=== PATIENT | male | born 1965 | race Two or more races ===

== ENCOUNTER 2020-06-16 11:44 | Inpatient (IN) | payer MEDICAID ==
[2020-06-16 16:34] VITALS: BP 109/67
[2020-06-16] MEDS ORDERED: Maalox 30 mL Cup PO PRN (16:40)
[2020-06-16] MEDS ORDERED: Magnesium Hydroxide (MOM) 30 mL UDC PO PRN (16:40)
[2020-06-17] MEDS: Multivitamin Tab PO SCH (08:33)
--- NOTE | 2020-06-17 13:51 | History & Physical ---
ADMIT DATE: 06/16/2020 CHIEF COMPLAINT: Hearing voices. HISTORY OF PRESENT ILLNESS: We have a 55-year-old male with history of schizophrenia, methamphetamine abuse, who was brought here for hearing voices. The patient was psychotic. At this time, the patient is still hearing voices. Denies any chest pain, shortness of breath, nausea, vomiting, abdominal pain, diarrhea. PAST MEDICAL HISTORY: 1. Schizophrenia. 2. Methamphetamine abuse. PAST SURGICAL HISTORY: None. MEDICATIONS: List reviewed. ALLERGIES: None. PHYSICAL EXAMINATION: VITAL SIGNS: Temperature 98.6, pulse 70, respirations 20, blood pressure 130/60. HEENT: Normocephalic, atraumatic head exam. NECK: Supple. CARDIAC: Regular rate and rhythm. LUNGS: Decreased breath sounds. ABDOMEN: Soft, nontender. EXTREMITIES: No edema, cyanosis, or clubbing. Cranial nerves grossly intact ASSESSMENT AND PLAN: 1. Methamphetamine abuse. 2. Schizophrenia. The patient will continue with inpatient psych. We will do some labs, CBC, CMP, COVID testing. JOB# [id number] DESTINY
--- NOTE | 2020-06-17 16:27 | History & Physical ---
ADMIT DATE: 06/16/2020 IDENTIFYING INFORMATION: The patient is a 55-year-old male. The patient was admitted on a hold for danger to self and danger to others. HISTORY OF PRESENT ILLNESS: The patient was sent from [place], staff contacted [facility] requesting mental health evaluation. male, who was experiencing hallucinations, voices were telling him to hurt himself, acting bizarre, paranoid behavior. When I talked to the patient, he reported that he was hearing voices. The voices telling him to harm himself, but he will not harm himself he says. He reports that he has been hospitalized a lot. He was not a very good historian. He reports that he sleeps well. He eats well. He has been depressed for a long period of time. He is not sure where he is, cannot tell me the date. He was not a very good historian. Onset of illness. Unable to tell me how long this has been going on. He states he has been homeless, not working. Unable to take care of himself. PAST PSYCHIATRIC HISTORY: He has been hospitalized a lot, unable to give much more information. SUBSTANCE ABUSE HISTORY: The patient denies. The patient also reports many prior suicide attempts by cutting himself and overdose. ALLERGIES: The patient has no known drug allergies. SOCIAL HISTORY: The patient reports that he is single, never , no children. EDUCATIONAL HISTORY: High school education, he is homeless. Work history, not working. FAMILY HISTORY: Denies family psychiatric disorder. MENTAL STATUS EXAMINATION: The patient is appropriately dressed, not well groomed. He was somewhat sleepy, very poor historian. Unable to tell me the date, where he is, why he is here. Admits to hearing voices. The voices are telling him to harm himself, but he said he would not harm himself. He has many prior suicide attempts, many hospitalizations. He reports that he sleeps well, eats well. He denies any intent to harm anyone. He seems to have below average intelligence. Unable to participate in meaningful conversation. Unable to tell me who is the president of thePlatform. Concentration is poor, unable to answer questions appropriately as well as questions forward and backward. Long-term memory is good. He can remember age, date of . Recent memory is poor, does not realize the problems that led to him coming here, what he ate for breakfast. Immediate memory is poor, cannot concentrate enough and repeat things after me. Insight about his illness is poor, does not realize what problem he has. Judgment is poor with his psychosis. IMPRESSION: Major depression, recurrent, severe, with psychosis. MEDICAL DIAGNOSIS: As per medical doctors. His assets, he is willing to get help. Negative, poor coping skills. PLAN: The patient will be started on Abilify and Lexapro. We will do group therapy, milieu therapy, and individual therapy. ESTIMATED LENGTH OF STAY: 3-7 days. DISCHARGE CRITERIA: Decreasing psychosis, no longer suicidal, after discharge outpatient. JOB# [id number]
[2020-06-18 06:07] LABS: A1C 5.3 % (4.8-5.6)
[2020-06-18] MEDS: Multivitamin Tab PO SCH (08:54)
--- NOTE | 2020-06-18 15:07 | Progress Notes ---
DATE: 06/18/2020 Case was discussed with staff of the patient, reviewed records. The patient reports he continues to hear voices. The voices tell him to kill people, but he has no plan of doing that. He denies that he will harm himself. He is still looking disheveled, disorganized, and internally preoccupied, cannot make safe plan for self-care. No side effects with the medication, no sedation, no nausea, no extrapyramidal symptoms. I will be increasing his Abilify to 5 mg twice a day. No side effects with the medication, no sedation, no nausea, no extrapyramidal symptoms and The voices are command in nature, telling him to harm people. We will continue outpatient group therapy, milieu therapy, adjust medication as needed. JOB# [id number] DESTINY
[2020-06-19] MEDS: Multivitamin Tab PO SCH (08:36)
--- NOTE | 2020-06-19 12:52 | Progress Notes ---
DATE: 06/19/2020 Case was discussed with staff of the patient, reviewed records. The patient continues to have disheveled, disorganized, internally preoccupied, staying in bed, continues to have poor insight, continues to be unable to make safe plan for self-care. Continues to report hearing voices, but now they are annoying him. He denies that there are no longer command in nature, but he is still hearing them. No side effects with the medication, no sedation, no nausea, no extrapyramidal symptoms. He is not sleeping well and I will be increasing the Abilify to 10 mg twice a day and working also on placement for this patient. I will continue outpatient group therapy, milieu therapy, adjust medication as needed. JOB# [id number]
--- NOTE | 2020-06-19 16:09 | Internal Medicine Prog Note ---
Internal Medicine Subjective - Subjective Service Date: 06/19/20 Patient seen and examined:: without staff Patient is:: awake Per staff patient has:: no adverse event, no episodes of fall Internal Medicine Objective - Results Recent Labs: Laboratory Last Values Triglycerides 74 mg/dL (30-150) 06/17/20 08:52 Cholesterol 145 mg/dL (<200) 06/17/20 08:52 LDL Cholesterol 86 mg/dL (0-129) 06/17/20 08:52 HDL Cholesterol 49 mg/dL (>45) 06/17/20 08:52 - Physical Exam Vitals and I&O: Vital Signs Temp 97 F 06/19/20 14:00 Pulse 67 06/19/20 14:00 Resp 20 06/19/20 14:00 BP 127/64 06/19/20 14:00 Pulse Ox 98 06/19/20 14:00 Intake & Output 06/18/20 06/19/20 06/19/20 18:59 06:59 18:59 Intake Total 1100 120 Balance 1100 120 Intake: Oral 1100 120 Other: # Voids 3 Stool Characteristics Soft Soft Soft Active Medications: Current Medications Acetaminophen (Tylenol) 650 mg PO Q4H PRN PRN Reason: Pain (Mild 1-3) Stop: 08/15/20 16:39 Acetaminophen (Tylenol Extra Strength) 1,000 mg PO Q6H PRN PRN Reason: Pain (Moderate 4-6) Stop: 08/15/20 16:39 Al Hydrox/Mg Hydrox/Simethicone (Maalox) 30 ml PO Q4HR PRN PRN Reason: GI DISTRESS Stop: 08/15/20 16:39 Aripiprazole (Abilify) 10 mg PO BID [facility]; Protocol Stop: 08/18/20 16:59 Ibuprofen (Motrin) 400 mg PO Q4H PRN PRN Reason: Pain (Severe 7-10) Stop: 08/15/20 16:39 Last Admin: 06/18/20 08:40 Dose: 400 mg Lorazepam (Ativan) 0.5 mg PO Q4HR PRN; Protocol PRN Reason: Anxiety Stop: 07/16/20 16:39 Last Admin: 06/19/20 08:36 Dose: 0.5 mg Magnesium Hydroxide (Milk Of Magnesia) 30 ml PO HS PRN PRN Reason: Constipation Multivitamins/Vitamin C (Theragran) 1 tab PO DAILY TYESHA Stop: 08/16/20 08:59 Last Admin: 06/19/20 08:36 Dose: 1 tab Sertraline HCl (Zoloft) 50 mg PO DAILY TYESHA; Protocol Stop: 08/17/20 08:59 Last Admin: 06/19/20 08:36 Dose: 50 mg Zolpidem Tartrate (Ambien) 5 mg PO HS PRN PRN Reason: Insomnia Stop: 08/15/20 16:39 Last Admin: 06/17/20 23:16 Dose: 5 mg HEENT: NC/AT, PERRLA Neck: Supple Lungs: CTAB Cardiovascular: RRR, Normal S1, Normal S2 Abdomen: soft Extremities: clear Internal Medicine Assmt/Plan - Assessment Assessment: 1. Methamphetamine abuse 2. Acute psychosis - Plan Plan: continue supportive care d/w r.n. review complete medical records
[2020-06-20] MEDS: Multivitamin Tab PO SCH (09:00)
--- NOTE | 2020-06-20 18:57 | Progress Notes ---
DATE: 06/20/2020 Case was discussed with staff of the patient, reviewed records. The patient reported that the medication is starting to work. He is sleeping better, eating better. Increased Abilify yesterday. The voices are not as prominent. However, he is not sleeping well and advised him to ask for Ambien at bedtime. No side effects with the medication, no sedation, no nausea, no extrapyramidal symptoms. We will continue outpatient group therapy, milieu therapy, adjust medication as needed. JOB# [id number]
[2020-06-21] MEDS: Multivitamin Tab PO SCH (09:20)
--- NOTE | 2020-06-21 21:32 | Progress Notes ---
DATE: 06/21/2020 PSYCHIATRIC FOLLOWUP NOTE IDENTIFYING DATA: A 55-year-old male from [place] experiencing hallucinations, voices telling him to hurt himself. Reconciliation reviewed. He is currently on Abilify 10 mg p.o. b.i.d. and Zoloft 50 mg. Today on [id number] evaluation, the patient reports that he continues to hear voices. He does report that they have been improving, but the voices are still there. He is tolerating the medications with an increase ____ which he reports improving. EXAMINATION: Poor sleep, insomnia, command type auditory hallucinations to hurt himself, continued to persist, although less with the recent increase in medication. ASSESSMENT AND PLAN: Major depressive disorder with psychosis. We will continue with the current medication regimen as they were recently increased to target the patient's ongoing symptoms. [facility]# [id number]
[2020-06-22] MEDS: Multivitamin Tab PO SCH (08:58)
--- NOTE | 2020-06-22 09:20 | Progress Notes ---
DATE: 06/22/2020 The patient was seen and evaluated. The patient's chart was reviewed. Covering for Dr. Oakley. Today on [id number] evaluation, the patient reports he started to note listening voices as of yesterday, whispers, talking to each other and at times negative ____. ASSESSMENT AND PLAN: Schizophrenia. We will continue with the recent adjustment on medications to continue to reach steady state. JOB# [id number]
[2020-06-23] MEDS: Multivitamin Tab PO SCH (08:55)
--- NOTE | 2020-06-23 12:00 | Progress Notes ---
DATE: 06/23/2020 Case was discussed with staff of the patient, reviewed records. The patient continues to hear voices. They are harassing him. He denies that he will harm himself, but the voices sometimes tell him to harm himself. He does not want to do that. He believes he needs a higher dose of medication. He is not sleeping well. No side effects with the medication, no sedation, no nausea, no extrapyramidal symptoms. I will be increasing the Abilify to 50 mg twice a day to help with his psychotic symptoms and no side effects with the medication, no sedation, no nausea, no extrapyramidal symptoms. I will be adding Remeron to his medication to help with his sleep and depression. Discussed side effects. We will continue outpatient group therapy, milieu therapy, adjust medication as needed. JOB# [id number]
[2020-06-24] MEDS: Multivitamin Tab PO SCH (08:43)
--- NOTE | 2020-06-24 21:11 | Progress Notes ---
DATE: 06/24/2020 SUBJECTIVE: Case was discussed with staff of the patient, reviewed records. The patient seems to be showing progress. He is sleeping better, eating better. He reported the voices are improving. He denies any current intent to harm himself or anyone, but he is still hearing voices. Tolerating increase in his medication with no side effects, sleeping better, eating better. He tolerated the adding of the Remeron yesterday. We will continue outpatient group therapy, milieu, and adjust the medication as needed. JOB# [id number]
[2020-06-25] MEDS: Multivitamin Tab PO SCH (08:31)
--- NOTE | 2020-06-25 14:43 | Progress Notes ---
DATE: 06/25/2020 Case was discussed with staff of the patient, reviewed records. The patient reported the voices are almost fading away. However, the staff reports he has been talking loud. He is sleeping better, eating better. Staff is working on placement for this patient, but he is not ready to go yet because it is too loud and labile. No side effects with the medication, no sedation, no nausea, no extrapyramidal symptoms. I will continue outpatient group therapy, milieu therapy, and adjust medications as needed. JOB# [id number]
[2020-06-26] MEDS: Multivitamin Tab PO SCH (08:33)
--- NOTE | 2020-06-26 19:18 | Progress Notes ---
DATE: 06/26/2020 Case was discussed with staff of the patient and reviewed records. The patient reports no longer hearing voices or seeing things. He is sleeping well and eating well. No suicidal ideation or homicidal ideation. The voices are fading away. Working on placement. No side effects to the medication, no sedation, no nausea, and no extrapyramidal symptoms. I will continue to work with the patient in group therapy, milieu therapy, and adjust medications as needed. JOB# [id number]
[2020-06-27] MEDS: Multivitamin Tab PO SCH (09:42)
--- NOTE | 2020-06-27 21:16 | Progress Notes ---
DATE: 06/27/2020 Case was discussed with staff of the patient and reviewed records. The patient is doing better, sleeping well, eating well, and supposed to be discharged; however, still waiting on placement. He denies any current intent to harm himself or anyone. Still with poor insight, unpredictable; however, he is much better compared to when he came, no longer hearing voices or seeing things, no longer having intent to harm himself or anyone. No side effects to the medication, no sedation, no nausea, and no extrapyramidal symptoms. We will continue to work with the patient in group therapy, milieu therapy, and adjust medications as needed. JOB# [id number]
[2020-06-28] MEDS: Multivitamin Tab PO SCH (08:37)
[2020-06-28] MEDS: Acetaminophen 500 MG TAB PO PRN ×2 (09:24→20:49)
--- NOTE | 2020-06-28 16:43 | Progress Notes ---
DATE: 06/28/2020 Case was discussed with staff of the patient, reviewed records. The patient in general is stable. He is sleeping better, eating better. Reported hallucinations are fading away. Sleeping well, eating well. No side effects with the medication, no sedation, no nausea, no extrapyramidal symptoms. Working on discharge plan. He continues, however, to look disheveled, disorganized, internally preoccupied. In general, he is able to express himself better and will continue outpatient group therapy, milieu therapy, adjust medication as needed. JOB# [id number]
[2020-06-29] MEDS: Multivitamin Tab PO SCH (08:43)
[2020-06-29] MEDS: Acetaminophen 500 MG TAB PO PRN ×2 (15:46→21:55)
--- NOTE | 2020-06-29 19:37 | Progress Notes ---
DATE: 06/29/2020 Case was discussed with staff of the patient, reviewed records. The patient is doing better, sleeping well, eating well. Awaiting placement. However, he was found to have a high temperature of 102. He is being seen by the medical doctor and that is Dr. Peterson. No side effects with the medication, no sedation, no nausea, no extrapyramidal symptoms. We will continue to work with the patient in group therapy, milieu therapy, and adjust the medications as needed. JOB# [id number]
[2020-06-30] MEDS: Acetaminophen 500 MG TAB PO PRN ×2 (08:47→21:21)
[2020-06-30] MEDS: Multivitamin Tab PO SCH (08:48)
--- NOTE | 2020-06-30 21:09 | Progress Notes ---
DATE: 06/30/2020 SUBJECTIVE: Case was discussed with staff of the patient, reviewed records. The patient is more stable The patient is awaiting for placement. The patient denies any current intent to harm himself or anyone. Sleeping well, eating well. No more auditoryor visual hallucination, no paranoia, no side effects and sleeping better, eating better; however, still looking somewhat disheveled, disorganized and preoccupied. Working on discharge plans. We have been having hard time finding placement for him because of the COVID-19. We will continue outpatient group therapy, milieu therapy, and adjust medication as needed. JOB# [id number] DESTINY
[2020-07-01] MEDS: Multivitamin Tab PO SCH (08:36)
[2020-07-01] MEDS: Acetaminophen 500 MG TAB PO PRN (08:37)
--- NOTE | 2020-07-01 22:39 | Progress Notes ---
DATE: 07/01/2020 Case was discussed with staff of the patient, reviewed records. The patient is stable. Sleeping well, eating well. No suicidal ideation, no homicidal ideation, no paranoia, no side effects. He is asking for more medication, then he said that he is not feeling that great. No side effects with the medication, no sedation, no nausea, no extrapyramidal symptoms. I will be increasing Zoloft to 100 mg a day. We will continue to work with the patient in group therapy, milieu therapy, and adjust the medications as needed. JOB# [id number]
[2020-07-02] MEDS: Multivitamin Tab PO SCH (08:25)
--- NOTE | 2020-07-02 11:48 | Progress Notes ---
DATE: 07/02/2020 Case was discussed with staff of the patient, reviewed records. The patient is stable; however, he looks disheveled, not taking showers, sleeping well, eating well. He tend to try to ask for more medication. So because of his history of addiction, I did take him off the Ativan, kept him on hydroxyzine instead. No side effects with the medication, no sedation, no nausea, no extrapyramidal symptoms, no visual hallucinations, no paranoia, sleeping well, eating well. We will continue outpatient group therapy, milieu therapy, adjust medication as needed. JOB# [id number]
[2020-07-03] MEDS: Multivitamin Tab PO SCH (08:44)
--- NOTE | 2020-07-03 20:22 | Progress Notes ---
DATE: 07/03/2020 Case was discussed with staff of the patient, reviewed records. The patient yesterday sign voluntary, later in the day he wanted to leave against medical advice. I discussed with staff, he is no longer suicidal or homicidal. He is not hearing voices anymore. He can take care of himself, so he could be discharged against medical advice. The family changed mind when talked to the social and political studies professor today to get a place. No side effects with the medication, no sedation, no nausea, no extrapyramidal symptoms. We will continue outpatient group therapy, milieu therapy, adjust medication as needed. JOB# [id number]
--- NOTE | 2020-07-04 16:46 | Discharge Summary ---
DATE OF DISCHARGE: 07/03/2020 IDENTIFYING INFORMATION: The patient is a 55-year-old male. CHIEF COMPLAINT: The patient was admitted on hold, danger to self, danger to others. HISTORY OF PRESENT ILLNESS: The patient came from [place]. The staff contacted [facility] requesting mental health evaluation. They reported male who was experiencing hallucination, voices were telling him to hurt himself. He was acting bizarre, paranoid. The patient reports when I talked to him, he was hearing voices. The voices were telling him to harm himself, but he would not harm himself, he says. For that he has been hospitalized a lot. He was not a very good historian, but that he sleeps well, he eats well. He has been depressed for a long period of time. He is not sure where he is, can tell me the date, was not a very good historian, unable to tell me how long this has been going on. He has been homeless, not working. Unable to take care of himself. The patient reports multiple prior hospitalizations. Denies family history of psychotic disorder. COURSE IN THE HOSPITAL: The patient was tested for gaytan, was negative. The patient was started on Abilify, the dose was increased to 15 mg twice a day, . The patient also added Remeron to help with sleep 7.5 mg at bedtime, multivitamin and Zoloft increased to 100 mg daily. The patient progressively got better. It took a while to find him a place so as to be tested for gaytan and it was negative. He was sleeping well, eating well. He was no longer hearing voices or seeing things. So, as he improved, he was no longer acting in anyway dangerous. He was ready to go to a lesser level of care. We felt he could be discharged to a lesser level of care. CONDITION ON DISCHARGE: The patient is appropriately dressed, not very groomed, sleeping well, eating well. No suicidal ideation, no homicidal ideation, no paranoia. Hopeful about the future. The patient can take care of his ADLs and function well socially. FINAL DIAGNOSES: Major depression, recurrent, severe, with psychosis. MEDICAL DIAGNOSIS: As per medical doctor. The patient will follow up with the psychiatrist, primary care physician and the therapist. EXPECTED OUTCOME: Stable if the patient complies with the above. The patient went to a placement ____. JOB# [id number] DESTINY
== END 2020-07-03 14:00 | disposition home or self-care (01) | DRG 885 ==
LOC: GERO 16:00
PROVIDERS: ADMIT Psychiatry & Neurology Psychiatry; ATTEND Psychiatry & Neurology Psychiatry
DX: F33.3 Major depressive disorder, recurrent, severe with psychotic symptoms (principal); F15.10 Other stimulant abuse, uncomplicated; Z59.0 Homelessness; Z03.818 Encounter for observation for suspected exposure to other biological agents ruled out
CPT/HCPCS: 36415-UA; 80061-TC; 83036-90; G0410; U0003-CS; Z7610